=== PATIENT | female | born 1995 | race Caucasian/White ===

== ENCOUNTER 2021-11-23 16:51 | Day surgery (SDC) | payer MEDICAID, OTHER ==
[2021-11-23 17:29] VITALS: BMI 32.4
== END 2021-11-23 19:12 | disposition home or self-care (01) ==
LOC: CSHLD/OP 16:51
PROVIDERS: ATTEND Obstetrics & Gynecology
DX: O36.8130 Decreased fetal movements, third trimester, not applicable or unspecified (principal); O34.219 Maternal care for unspecified type scar from previous cesarean delivery; Z3A.37 37 weeks gestation of pregnancy
CPT/HCPCS: 76819; 99282

== ENCOUNTER 2021-11-27 22:13 | Day surgery (SDC) | payer OTHER, MEDICAID ==
[2021-11-27 22:56] VITALS: BMI 33.1
[2021-11-27] MEDS ORDERED: hydrALAZINE 20 MG/ML VIAL SLOW IVP PRN (23:14)
[2021-11-27] MEDS ORDERED: Lactated Ringer's 1,000 ML IV SCH (23:15)
[2021-11-27] MEDS ORDERED: Acetaminophen 500 MG TAB PO SCH (23:15)
[2021-11-28 00:32] LABS: SARS-CoV-2 NAA Rapid Test DETECTED (NotDetected)
== END 2021-11-28 01:15 | disposition home or self-care (01) ==
LOC: CSHLD/OP 22:13
PROVIDERS: ATTEND Obstetrics & Gynecology
DX: O98.513 Other viral diseases complicating pregnancy, third trimester (principal); U07.1 COVID-19; O36.8130 Decreased fetal movements, third trimester, not applicable or unspecified; O34.211 Maternal care for low transverse scar from previous cesarean delivery; Z3A.38 38 weeks gestation of pregnancy
CPT/HCPCS: 0240U; 76819

== ENCOUNTER 2021-11-30 10:54 | Outpatient (CLI) | payer OTHER, MEDICAID ==
[2021-12-01 12:44] LABS: SARS-CoV-2 PCR by NAA DETECTED (NotDetected)
== END 2021-11-30 10:55 | disposition home or self-care (01) ==
LOC: CSHLAB 10:54
PROVIDERS: ATTEND Obstetrics & Gynecology
DX: U07.1 COVID-19 (principal)
CPT/HCPCS: U0003; U0005

== ENCOUNTER 2021-12-04 18:00 | Inpatient (IN) | payer BC, OTHER ==
[2021-12-13] MEDS ORDERED: Bupivacaine/Epinephrine 0.25% 30 ML VIAL ONE (08:00)
[2021-12-13] MEDS ORDERED: Bupivacaine 0.25% HCL 30 ML VIAL ONE (08:00)
[2021-12-13] MEDS ORDERED: HYDROcodone/Acetaminophen 5/325 mg Tablet PO PRN ×2 (16:26)
[2021-12-13] MEDS ORDERED: Methylergonovine 0.2 MG/ML VIAL IM PRN (16:26)
[2021-12-13] MEDS ORDERED: Ondansetron PF 4 MG/2 ML Vial IVP PRN (16:26)
[2021-12-13] MEDS ORDERED: Misoprostol 200 MCG TAB PR PRN (16:26)
[2021-12-13] MEDS ORDERED: Zolpidem Tartrate 5 MG TAB PO PRN (16:26)
[2021-12-13] MEDS ORDERED: Ibuprofen 800 MG TAB PO PRN (16:26)
[2021-12-13] MEDS ORDERED: Carboprost 250 MCG/ML AMP IM PRN (16:26)
[2021-12-13] MEDS ORDERED: Promethazine HCl 25 MG/ML VIAL IM PRN (16:26)
[2021-12-13] MEDS ORDERED: Acetaminophen 500 MG TAB PO PRN (16:26)
[2021-12-13] MEDS ORDERED: NS w/ Oxytocin 30 units 500 ML IV SCH ×2 (16:26)
[2021-12-13] MEDS ORDERED: hydrALAZINE 20 MG/ML VIAL SLOW IVP PRN (16:26)
[2021-12-13] MEDS ORDERED: Diphenoxylate HCl/Atropine Tablet PO PRN (16:26)
[2021-12-13] MEDS ORDERED: Lactated Ringer's 1,000 ML IV SCH (16:26)
[2021-12-13] MEDS ORDERED: Lidocaine 1% (PF) 30 ML VIAL SC PRN (16:26)
[2021-12-13 16:28] VITALS: BMI 32.9
[2021-12-13 16:42] LABS: Hemoglobin 10.6 g/dL (12.0-15.5); Mean Corpuscular HGB CONC 32.7 g/dL (32.0-36.0); Mean Corpuscular Hemoglobin 29.5 pg (27.0-33.0); Mean Corpuscular Volume 90.3 fl (81.6-98.3); Mean Platelet Volume 12.8 fl (7.4-10.4); Platelet Count 163 10x3/uL (150-450); RBC Distribution Width 14.8 % (11.5-14.5); Red Blood Cell (RBC) Count 3.59 10x6/uL (3.90-5.03); White Blood Cell (WBC) Count 8.3 10x3/uL (3.5-10.5)
[2021-12-13 18:42] LABS: Hep B Surf Ag Non-Reactive S/CO (NonReactive)
[2021-12-13 18:43] LABS: Syphilis Antibody Nonreactive (Nonreactive); Syphilis Antibody Index 0.03 S/CO (<1.00 Non-Reactive)
[2021-12-13 19:22] LABS: HBSAg Index 0.19 S/CO (0-0.99)
[2021-12-13] MEDS: Butorphanol Tartrate 1 MG/ML VIAL SLOW IVP PRN (23:20)
[2021-12-14] MEDS: Butorphanol Tartrate 1 MG/ML VIAL SLOW IVP PRN (01:36)
[2021-12-14] MEDS ORDERED: Fentanyl 2 mcg/Bup 0.1% Cadd 100 ML ONE ×3 (03:39→16:27)
[2021-12-14] MEDS ORDERED: Naloxone HCl 0.4 mg/ml Vial IVP PRN ×2 (04:27)
[2021-12-14] MEDS ORDERED: Ondansetron PF 4 MG/2 ML Vial IVP PRN (04:27)
[2021-12-14] MEDS ORDERED: Promethazine HCl 25 MG/ML VIAL IM PRN (04:27)
[2021-12-14] MEDS ORDERED: Lactated Ringer's 500 ML IV PRN (04:27)
[2021-12-14] MEDS ORDERED: Acetaminophen 325 MG TAB PO PRN (04:27)
[2021-12-14] MEDS ORDERED: diphenhydrAMINE 50 MG/ML VIAL IVP PRN (04:27)
[2021-12-14] MEDS ORDERED: ePHEDrine Sulfate 50 MG/10 ML VIAL SLOW IVP PRN (04:27)
[2021-12-14] MEDS ORDERED: Hydrocerin (Eucerin) Cream 120 gm Jar TOP PRN (04:27)
[2021-12-14] MEDS ORDERED: Communication Order-Pharmacy FS SCH (04:30)
[2021-12-14] MEDS: Fentanyl 2 mcg/Bupivacaine 0.1% Cassette 100 ML EPIDURAL SCH ×2 (11:04→16:27)
[2021-12-14] MEDS ORDERED: NS w/ Oxytocin 30 units 500 ML IV SCH (22:03)
[2021-12-14] MEDS ORDERED: Methylergonovine 0.2 MG/ML VIAL IM PRN (22:03)
[2021-12-14] MEDS ORDERED: Misoprostol 200 MCG TAB VAG PRN (22:03)
[2021-12-14] MEDS ORDERED: Milk Of Magnesia 30 ML UDCUP PO PRN (22:03)
[2021-12-14] MEDS ORDERED: diphenhydrAMINE 25 MG CAP PO PRN (22:03)
[2021-12-14] MEDS ORDERED: HYDROcodone/Acetaminophen 5/325 mg Tablet PO PRN (22:03)
[2021-12-14] MEDS ORDERED: Boostrix 0.5 ML (Tdap) VIAL IM ONE (22:03)
[2021-12-14] MEDS ORDERED: Bisacodyl 10 MG SUPP PR PRN (22:03)
[2021-12-14] MEDS ORDERED: hydrALAZINE 20 MG/ML VIAL SLOW IVP PRN (22:03)
[2021-12-14] MEDS ORDERED: Ibuprofen 800 MG TAB PO SCH (22:15)
[2021-12-15] MEDS: Ibuprofen 800 MG TAB PO SCH ×3 (05:38→21:00)
[2021-12-15] MEDS: HYDROcodone/Acetaminophen 5/325 mg Tablet PO PRN ×3 (10:34→21:00)
[2021-12-15] MEDS: Ferrous Sulfate 325 MG TAB PO SCH (10:35)
[2021-12-15] MEDS: Docusate 100 MG CAP PO SCH ×2 (10:35→21:00)
[2021-12-16] MEDS: Ibuprofen 800 MG TAB PO SCH (05:33)
[2021-12-16] MEDS: Ferrous Sulfate 325 MG TAB PO SCH (08:26)
[2021-12-16] MEDS: Docusate 100 MG CAP PO SCH (08:26)
[2021-12-16 08:52] VITALS: BP 102/55; TEMP 98.1
== END 2021-12-16 11:50 | disposition home or self-care (01) | DRG 807 ==
LOC: CSHLD 12-13 15:32 → CSHPP 12-14 20:30
PROVIDERS: ADMIT Obstetrics & Gynecology; ATTEND Obstetrics & Gynecology
PROC: 10E0XZZ Delivery of Products of Conception, External Approach (ICD-10-PCS; principal; 2021-12-15)
PROC: 10907ZC Drainage of Amniotic Fluid, Therapeutic from Products of Conception, Via Natural or Artificial Opening (ICD-10-PCS; 2021-12-15)
PROC: 3E0E7GC Introduction of Other Therapeutic Substance into Products of Conception, Via Natural or Artificial Opening (ICD-10-PCS; 2021-12-15)
DX: O34.211 Maternal care for low transverse scar from previous cesarean delivery (principal); Z37.0 Single live birth; Z3A.40 40 weeks gestation of pregnancy; O76 Abnormality in fetal heart rate and rhythm complicating labor and delivery; O69.81X0 Labor and delivery complicated by cord around neck, without compression, not applicable or unspecified; O99.02 Anemia complicating childbirth; D64.9 Anemia, unspecified
CPT/HCPCS: 36415; 51702; 85027; 86780; 86850; 86900; 86901; 87340; J0595; J2590; S0020